=== PATIENT | male | born 1970 | race Caucasian/White ===

== ENCOUNTER 2024-09-22 15:57 | Emergency (ER) | payer SELFPAY ==
[~2024-09-22] VITALS: Ht 172.7 cm; Wt 87.1 kg
[2024-09-22] MEDS ORDERED: MethylPREDNISolone Sod Succ 125 MG Vial IV ONE (16:05)
[2024-09-22] MEDS ORDERED: Famotidine 10 MG/ML 2ML Vial IV ONE (16:05)
[2024-09-22] MEDS ORDERED: EPIPEN0.3 MG/0.3 IM (19:12)
[2024-09-22] MEDS ORDERED: ALLEGRA ALLERGY60 MG PO (19:12)
== END 2024-09-22 19:31 | disposition home or self-care (01) ==
LOC: ER 15:57
DX: T78.2XXA Anaphylactic shock, unspecified, initial encounter (principal); Z88.1 Allergy status to other antibiotic agents; Z88.5 Allergy status to narcotic agent
CPT/HCPCS: 93005; 93010; 96374; 96375; 99285-25; J2919